=== PATIENT | female | born 1985 | race Caucasian/White ===

== ENCOUNTER 2023-10-27 08:04 | Day surgery (SDC) | payer BC ==
[2023-10-26 11:02] VITALS: BMI 20.9
[2023-10-27] MEDS ORDERED: PROPOFOL 60 ML ONE (09:59)
[2023-10-27] MEDS ORDERED: Lidocaine 2% MPF 10 ML AMP (For Epidural Use) ONE (09:59)
[2023-10-27] MEDS ORDERED: PROPOFOL 20 ML ONE (11:44)
== END 2023-10-27 12:45 | disposition home or self-care (01) ==
LOC: CSHSDC 08:04
PROVIDERS: ATTEND Internal Medicine Gastroenterology
PROC: 0DJD8ZZ Inspection of Lower Intestinal Tract, Via Natural or Artificial Opening Endoscopic (ICD-10-PCS; principal; 2023-10-27)
DX: K64.8 Other hemorrhoids (principal); K63.89 Other specified diseases of intestine; K62.89 Other specified diseases of anus and rectum; K92.1 Melena; E03.9 Hypothyroidism, unspecified; Z88.0 Allergy status to penicillin; Z88.2 Allergy status to sulfonamides
CPT/HCPCS: J2704